=== PATIENT | female | born 1980 | race Caucasian/White ===

== ENCOUNTER 2019-08-22 23:47 | Emergency (ER) | payer SELFPAY ==
[~2019-08-22] VITALS: Ht 157.5 cm; Wt 58.0 kg
[2019-08-23] MEDS ORDERED: ONDANSETRON ODT 8 MG PO ONE
[2019-08-23] MEDS ORDERED: HYDROmorphone 1 MG/ML, 1ML INJ IM ONE
[2019-08-23] MEDS ORDERED: ONDANSETRON ODT 8 MG ONE (00:06)
[2019-08-23] MEDS ORDERED: CEFAZOLIN 1,000 MG ONE (00:07)
[2019-08-23] MEDS ORDERED: HYDROmorphone 1 MG/ML, 1ML INJ ONE (00:07)
[2019-08-23] MEDS ORDERED: DIPH,PERTUSS(ACELL),TET VAC/PF 0.5 ML IM-VACC ONE ×2 (00:07)
[2019-08-23] MEDS ORDERED: LIDOCAINE-MPF 1%, 5ML ONE (00:12)
--- NOTE | 2019-08-23 00:15 | NUR ---
Pt presents with large lac to L great toe and smaller lac to L 2nd digit. CMS appears intact. Pt medicated per MAR for pain. Pt to xray via [facility].
[2019-08-23] MEDS ORDERED: CEFAZOLIN 1,000 MG IM ONE (00:30)
[2019-08-23] MEDS ORDERED: LIDOCAINE 1%, 2ML INFIL ONE (00:30)
--- NOTE | 2019-08-23 00:45 | NUR ---
Pt returned from xray and medicated per JUL. Provider at bedside to update. Call light in reach.
[2019-08-23] MEDS ORDERED: ALPR1TAB2 PO (01:10)
[2019-08-23] MEDS ORDERED: BUPIVACAINE 0.25% ONE (01:14)
--- NOTE | 2019-08-23 01:25 | NUR ---
Tech at bedside for wound irrigation.
[2019-08-23] MEDS ORDERED: BUPIVACAINE 0.25% INFIL ONE (01:30)
[2019-08-23] MEDS ORDERED: HYDROcodone/APAP 10/325 MG TABLET PO ONE (02:00)
[2019-08-23] MEDS ORDERED: HYDROcodone/APAP 10/325 MG TABLET ONE (02:03)
[2019-08-23 02:33] VITALS: BP 162/101
== END 2019-08-23 02:39 | disposition home or self-care (01) ==
LOC: ED 08-23 00:38
DX: S92.422B Displaced fracture of distal phalanx of left great toe, initial encounter for open fracture (principal); S92.532B Displaced fracture of distal phalanx of left lesser toe(s), initial encounter for open fracture; S91.112A Laceration without foreign body of left great toe without damage to nail, initial encounter; F17.200 Nicotine dependence, unspecified, uncomplicated; X58.XXXA Exposure to other specified factors, initial encounter; Y93.89 Activity, other specified; Y92.009 Unspecified place in unspecified non-institutional (private) residence as the place of occurrence of the external cause; Y99.8 Other external cause status
CPT/HCPCS: 12042; 73630; 90471; 90715; 96372; 99285; J0690; J1170; Q0162

== ENCOUNTER 2020-01-10 20:58 | Emergency (ER) | payer SELFPAY ==
[~2020-01-10] VITALS: Ht 157.5 cm; Wt 64.6 kg
[~2020-01-10 20:58] MED LIST: ALPR1TAB2 PO
[2020-01-10 21:12] VITALS: BP 151/100
[2020-01-10] MEDS ORDERED: LIDOCAINE-MPF 2% ,5ML ONE (21:28)
[2020-01-10] MEDS ORDERED: LIDOCAINE 2%, 20ML SQ ONE (21:30)
[2020-01-10] MEDS ORDERED: ONDANSETRON ODT 4 MG ONE (22:00)
[2020-01-10] MEDS ORDERED: ONDANSETRON ODT 4 MG PO ONE (22:00)
[2020-01-10] MEDS ORDERED: IBUPROFEN 800 MG TABLET ONE (22:00)
[2020-01-10] MEDS ORDERED: IBUPROFEN 800 MG TABLET PO ONE (22:00)
[2020-01-10] MEDS ORDERED: NEOSPORIN OINT. PKT 1 PACKET ONE (22:01)
== END 2020-01-10 22:06 | disposition home or self-care (01) ==
LOC: ED 21:30
DX: S61.411A Laceration without foreign body of right hand, initial encounter (principal); F17.210 Nicotine dependence, cigarettes, uncomplicated; W26.0XXA Contact with knife, initial encounter; Y93.89 Activity, other specified; Y92.090 Kitchen in other non-institutional residence as the place of occurrence of the external cause; Y99.8 Other external cause status
CPT/HCPCS: 12001; 99283; 99406; Q0162